=== PATIENT | male | born 1950 | race Caucasian/White ===

== ENCOUNTER 2018-07-31 16:57 | Emergency (ER) | payer OTHER ==
[~2018-07-31] VITALS: Ht 190.5 cm; Wt 90.7 kg
[2018-07-31] MEDS ORDERED: ZESTRIL10 M1 (17:06)
[2018-07-31] MEDS ORDERED: HYDROCHLOROTHIA25 MG (17:06)
[2018-07-31] MEDS ORDERED: ATORVASTATIN CA10 MG (17:06)
== END 2018-07-31 19:58 | disposition home or self-care (01) ==
LOC: ER 16:57
DX: J09.X2 Influenza due to identified novel influenza A virus with other respiratory manifestations (principal)